=== PATIENT | male | born 1960 | race Caucasian/White ===

== ENCOUNTER 2020-04-25 15:08 | Emergency (ER) | payer BC, OTHER ==
[~2020-04-25] VITALS: Ht 188 cm; Wt 72.6 kg
[2020-04-25 17:19] VITALS: BP 130/74
== END 2020-04-25 19:04 | disposition home or self-care (01) ==
LOC: ER 15:10
DX: U07.1 COVID-19 (principal)
CPT/HCPCS: 71045